=== PATIENT | female | born 1955 | race Caucasian/White ===

== ENCOUNTER 2020-09-10 14:59 | Emergency (ER) | payer MEDICARE ==
[~2020-09-10] VITALS: Ht 170.2 cm; Wt 77.5 kg
--- NOTE | 2020-09-10 15:06 | NUR ---
GASKET W[facility]ER NOTE: EKG DONE IN TRIAGE
--- NOTE | 2020-09-10 15:45 | NUR ---
DR HURTADO IN ROOM SPEAKING W/ PT.
--- NOTE | 2020-09-10 15:53 | NUR ---
COVID +2 WEEKS AGO. 08/22/ FIRST DAY OF SX. COUGH, FATIGUE, CHEST HEAVINESS. DENIES DYSPNEA, FEVER. INTACT SENSE OF SMELL AND TASTE. NO PAIN MED TAKEN TODAY.
[2020-09-10 15:59] VITALS: BP 120/65
--- NOTE | 2020-09-10 16:18 | NUR ---
CXR DONE, LABS DRAWN
[2020-09-10 16:44] LABS: ALBUMIN 3.7 g/dL (3.4-5.0); ANION GAP 4 mmol/L (5-15); CALCIUM 8.9 mg/dL (8.5-10.1); CHLORIDE 110 mmol/L (98-107); CREATININE 0.78 mg/dL (0.55-1.02)
[2020-09-10 16:45] LABS: BASOPHILS % (AUTO) 1 % (0-1); EOSINOPHILS % (AUTO) 2 % (1-7); LYMPHOCYTES % (AUTO) 31 % (22-44); MEAN CORPUSCULAR HEMOGLOBIN 30.4 pg (27.0-34.8); MEAN CORPUSCULAR HGB CONC 33.7 g/dL (32.4-35.8); MEAN PLATELET VOLUME 9.5 fL (7.4-10.4); MONOCYTES % (AUTO) 9 % (2-9); NEUTROPHILS % (AUTO) 58 % (42-75); PLATELET COUNT 235 x10^3/uL (130-400); RED BLOOD COUNT 4.61 x10^6/uL (3.82-5.3); RED CELL DISTRIBUTION WIDTH 13.3 % (9.6-15.2)
[2020-09-10 16:54] LABS: MD NO
== END 2020-09-10 17:44 | disposition home or self-care (01) ==
LOC: ED 17:38
DX: U07.1 COVID-19 (principal); J06.9 Acute upper respiratory infection, unspecified; R94.31 Abnormal electrocardiogram [ECG] [EKG]
CPT/HCPCS: 36415; 71045; 80048; 82040; 85025; 93005; 99285